=== PATIENT | male | born 2000 | race Native Hawaiian/Other Pacific Islander ===

== ENCOUNTER 2021-08-02 12:34 | Outpatient (REF) | payer OTHER, SELFPAY ==
[2021-08-02 16:10] LABS: COVID-19 Test Negative (Negative)
== END 2021-08-02 12:35 | disposition home or self-care (01) ==
LOC: HO.LAB 12:34
PROVIDERS: Visit Provider Internal Medicine
DX: Z20.822 Contact with and (suspected) exposure to COVID-19 (principal)
CPT/HCPCS: 36415; 87635; C9803

== ENCOUNTER 2021-08-09 09:26 | Emergency (ER) | payer OTHER, SELFPAY ==
[2021-08-09 10:59] VITALS: BP 164/66; PULSE 93; RESP 16; TEMP 37.4; O2SAT 98; BMI 41.6
[2021-08-09] MEDS: Diphth,Pertus(ACell),Tet Adult 0.5 ML SYRINGE IM (11:28)
--- NOTE | 2021-08-09 11:47 | ED.WOUNDLAC ---
HPI - Wound/Laceration General Chief Complaint: Wound/Laceration Stated Complaint: finger lac at work Time Seen by Provider: 08/09/21 11:19 History of Present Illness HPI narrative: Patient complains of laceration to left 4th finger while cutting boxes at work with a knife this morning Related Data Allergies Allergy/AdvReac Type Severity Reaction Status Date / Time No Known Allergies Allergy Unverified 04/28/20 16:54 Review of Systems Review of Systems: Positive left 4th finger laceration Negatives are no numbness no weakness no tingling no joint pain no neck pain no back pain no other injury Yes all other systems are reviewed and are negative [facility] Past Medical History Source: nursing notes reviewed Medical History (Updated 08/09/21 @ 11:48 by CITLALLI Ivy) Asthma Social History Social History Advance Directives: No Advance Directives Information Provided: Yes Physical Exam Vital Signs: Vital Signs: Last Vital Signs Temp 99.4 F 08/09/21 10:59 Pulse 93 08/09/21 10:59 Resp 16 08/09/21 10:59 BP 164/66 H 08/09/21 10:59 Pulse Ox 98 08/09/21 10:59 BMI result Body Mass Index 41.6 General appearance no distress Head is normocephalic atraumatic Neck is supple Respiratory no distress Extremities the left 4th finger volar surface had a 1 0.5 cm subcutaneous laceration All tendon function is normal there is full range of motion in the joints motor and sensation are intact Other extremities neuro Course Course Course Narrative: Left 4th finger laceration procedure note The 1.5 cm laceration is cleansed and irrigated with normal saline A digital block is applied to the finger with good anesthesia using 6 cc of 1% lidocaine 55.0 nylon sutures were used Wound was well approximated bleeding controlled and bandage was applied Discharge Plan Discharge Clinical Impression: Laceration Patient Disposition: Home, Self-Care Additional Instructions: Stitches need to be removed in 7 days at work connection Return any time for redness swelling any sign of infection You got a tetanus shot today Referrals: [facility] [Provider Group] - 2 days (Finger laceration with sutures) Stand Alone Forms: Work/School Release Interventions: ED Discharge Assessment Last Done: 08/09/21 12:40 Discharge Date/Time: 08/09/21 12:40
[2021-08-09] MEDS: Lidocaine HCl 2 % 20 ML VIAL 5 ML SUBCUT ×2 (12:39)
== END 2021-08-09 12:40 | disposition home or self-care (01) ==
PROVIDERS: Emergency Provider Emergency Medicine
DX: S61.215A Laceration without foreign body of left ring finger without damage to nail, initial encounter (principal); W27.8XXA Contact with other nonpowered hand tool, initial encounter; Y93.89 Activity, other specified; Y92.59 Other trade areas as the place of occurrence of the external cause; Y99.0 Civilian activity done for income or pay
CPT/HCPCS: 12001; 90471; 90715; 99283; 99284

== ENCOUNTER 2022-03-05 18:51 | Emergency (ER) | payer OTHER, SELFPAY ==
--- NOTE | ~2022-03-05 | XR_ITS ---
EXAMINATION: XR ANKLE, RIGHT CLINICAL INFORMATION: Pain with limited range of motion COMPARISON: None TECHNIQUE: AP, lateral, and mortise views of the right ankle. FINDINGS: There is a small ossification seen adjacent to the tip of the lateral malleolus. This could represent an avulsion. No additional evidence of fracture. No dislocation. The ankle mortise is congruent. No ankle joint effusion. Diffuse circumferential soft tissue swelling. XR/XR ankle RT min 3V IMPRESSION: Circumferential soft tissue swelling. Possible small avulsive injury at the tip of the lateral malleolus.
[2022-03-05 19:42] VITALS: BP 153/85; PULSE 104; RESP 18; TEMP 37.6; O2SAT 98; BMI 41.9
--- NOTE | 2022-03-05 20:46 | ED_ITS ---
HPI - Extremity Injury (Lower) General Chief Complaint: Extremity Injury, Lower Stated Complaint: foot INJ Time Seen by Provider: 03/05/22 20:46 Source: patient Mode of arrival: ambulatory Limitations: no limitations History of Present Illness HPI Narrative: 21-year-old male came in for evaluation of her right ankle pain. Patient was trying to get of home going truck missed a step landed on the ground twisting his right ankle. Patient was able to bear weight with pain. Patient's pain is localized to the right ankle. Related Data Allergies Allergy/AdvReac Type Severity Reaction Status Date / Time No Known Allergies Allergy Unverified 04/28/20 16:54 Review of Systems Review of Systems: All other systems are reviewed and are negative Constitutional: Reports as per HPI and Reports no additional constitutional complaints Eyes: Reports as per HPI and Reports no additional eye complaints Reports system reviewed and no additional complaints, except as documented Cardiovascular: Reports as per HPI and Reports no additional cardiovascular complaints Respiratory: Reports as per HPI and Reports no additional respiratory complaints Gastrointestinal: Reports as per HPI and Reports no additional gastrointestinal complaints Genitourinary: Reports no additional female genitourinary complaints Musculoskeletal: Reports no additional musculoskeletal complaints Skin/Breast: Reports system reviewed and no additional complaints, except as docu Psychiatric: Reports no additional psychiatric complaints Endocrine: Reports no additional endocrine complaints Hematologic/Lymphatic: Reports no additional hematologic/lymphatic complaints Allergic/Immunologic: Reports no additional allergic/immunologic complaints Reports system reviewed and no additional complaints, except as documented and Reports Abnormal speech present [facility] Past Medical History Medical History Asthma Social History Social History Advance Directives: No Advance Directives Information Provided: No Physical Exam Vital Signs: Vital Signs: Last Vital Signs Temp 99.6 F 03/05/22 19:42 Pulse 104 H 03/05/22 19:42 Resp 18 03/05/22 19:42 BP 153/85 H 03/05/22 19:42 Pulse Ox 98 03/05/22 19:42 O2 Del Method 03/05/22 19:42 BMI result Body Mass Index 41.9 Vital signs have been reviewed as appeared to be correct. Blood pressure normal. Heart rate normal. Respiration rate normal. Temperature normal. Oxygen saturation normal. Appearance: Alert. Oriented X3. No acute distress. Head: Normal external exam. Normocephalic. Atraumatic. No Bang signs noted. No raccoon eyes noted Eyes: PERRLA. EOMI. Conjunctiva and sclera normal. Eyelids normal. ENT: TM's Normal. Pharynx normal. Uvula midline. Moist mucous membranes. No trismus noted. No drooling noted. No muffled voice noted. Neck: Normal inspection. Neck supple. FROM. No adenopathy. Thyroid Normal. No meningeal signs. No neck mass noted. CVS: Normal heart rate and rhythm. Heart sound normal. No murmurs noted. Pulses normal throughout. Respiratory: No respiratory distress. Painless inspiration. Breath sounds normal. No wheezes/rales/rhonchi noted. Chest nontender. No accessory muscle usage noted or decreased air movement noted. Abdomen: Soft and nontender. Bowel sounds normal in all 4 quadrants. No distention noted. No organomegaly noted. No visible injury noted. Back: No CVA tenderness. Full range of motion noted. Skin: Skin warm and dry. Normal skin color. Normal skin turgor. No rashes/lesions/lacerations noted. Extremities: Right ankle exam: Mild tenderness over medial and lateral malleolus, mild swelling, able to ambulate and bear weight. Neuro: Oriented X 3. Cranial nerve exam: II-XII are grossly intact No motor deficit. No sensory deficit. Reflexes normal. Course Course Course Narrative: Right ankle sprain. With possible avulsion injury. Ice, NSAIDs, Luis F bandage. Follow-up with ortho. MDM - Extremity Injury (Lower) Imaging Data Right ankle x-ray: Attestation: I personally reviewed and interpreted this imaging study as follows: Radiologist's impression: Circumferential soft tissue swelling. Possible small avulsive injury at the tip of the lateral malleolus. Discharge Plan Discharge Clinical Impression: Right ankle sprain, Avulsion injury Patient Disposition: Home, Self-Care Instructions: Ankle Sprain (ED) Referrals: Silverio Maradiaga MD [Physician] - Stand Alone Forms: Work/School Release
== END 2022-03-05 21:17 | disposition home or self-care (01) ==
PROVIDERS: Emergency Provider Emergency Medicine
DX: S93.401A Sprain of unspecified ligament of right ankle, initial encounter (principal); X50.1XXA Overexertion from prolonged static or awkward postures, initial encounter; Y93.9 Activity, unspecified; Y92.9 Unspecified place or not applicable; Y99.9 Unspecified external cause status
CPT/HCPCS: 73610; 99282; 99283

== ENCOUNTER → 2023-01-14 09:16 | Outpatient (BNVA) | payer OTHER, SELFPAY | PROVIDERS: Visit Provider Internal Medicine | DX: S51.812A Laceration without foreign body of left forearm, initial encounter (principal); W26.0XXA Contact with knife, initial encounter | CPT/HCPCS: 12004; 99203 ==

== ENCOUNTER → 2023-01-17 14:29 | Outpatient (BNVA) | payer OTHER, SELFPAY | PROVIDERS: Visit Provider Internal Medicine | DX: S61.512A Laceration without foreign body of left wrist, initial encounter (principal); W26.0XXA Contact with knife, initial encounter | CPT/HCPCS: 99213 ==

== ENCOUNTER → 2023-01-22 08:45 | Outpatient (BNVA) | payer OTHER, SELFPAY | PROVIDERS: Visit Provider Internal Medicine | DX: S61.512A Laceration without foreign body of left wrist, initial encounter (principal); W26.0XXA Contact with knife, initial encounter | CPT/HCPCS: 99212; 99213 ==

== ENCOUNTER 2023-10-01 13:29 | Emergency (ER) | payer MEDICAID, SELFPAY ==
--- NOTE | ~2023-10-01 | CT_ITS ---
EXAMINATION: CT ABDOMEN AND PELVIS WITHOUT CONTRAST CLINICAL INFORMATION: The material COMPARISON: None available. TECHNIQUE: Multidetector volumetric imaging was performed from the superior aspect of the liver through the pubic symphysis. Sagittal and coronal reformatted images were obtained on the technologist's workstation. This CT examination was performed using dose optimization techniques as appropriate, variously including the following: *Automated exposure control *Adjustment of mA and/or kV according to patient size (this includes techniques or standardized protocols for targeted exams where dose is matched to indication/reason for exam; i.e. extremities or head) *Use of iterative reconstruction technique DLP: 847 mGy-cm FINDINGS: LUNG BASES: The visualized lung bases are unremarkable. The heart size is normal. LIVER, GALLBLADDER, AND BILIARY TREE: The liver is normal in size, shape, and attenuation. No focal hepatic lesion or biliary ductal dilatation is present. The gallbladder is unremarkable with no evidence of radiopaque gallstones, gallbladder wall thickening, or obvious pericholecystic inflammatory changes. PANCREAS: Unremarkable. SPLEEN: Unremarkable. ADRENAL GLANDS: Unremarkable. KIDNEYS AND URETERS: The kidneys are normal in size, shape, and attenuation. There are nonobstructive 3 mm upper pole, 6 mm mid and lower pole radiopaque calculi left kidney without caliectasis or hydronephrosis. There is a 2.2 cm cyst midpole left kidney. There is a 1 mm nonobstructive radiopaque calculi lower pole right kidney. No hydronephrosis seen on either side. BLADDER: The bladder is nondistended. GASTROINTESTINAL TRACT: There is scattered stool and gas seen throughout the colon without distention. The appendix and the small bowel loops are normal caliber. The stomach is nondistended and appears unremarkable. ABDOMINAL WALL: No significant hernia is appreciated. LYMPH NODES: No abnormal size retroperitoneal lymph nodes seen. VASCULAR: Unremarkable. PELVIC VISCERA: Unremarkable. OSSEOUS STRUCTURES: No aggressive lytic or sclerotic process seen. CT/CT abdomen pelvis wo IV con IMPRESSION: 1. Bilateral nonobstructive radiopaque renal calculi without caliectasis or hydronephrosis. There is a simple left renal cyst. No further workup is needed 2. Mild constipation. Fleischner guidelines were followed.
[2023-10-01 13:55] VITALS: BP 149/94; PULSE 72; RESP 19; TEMP 36.6; O2SAT 98; BMI 42.9
--- NOTE | 2023-10-01 13:57 | ED.MALEGU ---
HPI - Male Genitourinary General Chief complaint: Urogenital-Male Stated complaint: Blood in Urine History of Present Illness HPI Narrative: left without completion of treatment by ED providder Related Data Allergies Allergy/AdvReac Type Severity Reaction Status Date / Time No Known Allergies Allergy Verified 10/01/23 13:55 [facility] Past Medical History Medical History Asthma Social History Social History Advance Directives: No Advance Directives Information Provided: No Physical Exam Vital Signs: Vital Signs: Last Vital Signs Temp 98 F 10/01/23 13:55 Pulse 72 10/01/23 13:55 Resp 19 10/01/23 13:55 BP 149/94 H 10/01/23 13:55 Pulse Ox 98 10/01/23 13:55 O2 Del Method Room Air 10/01/23 13:55 BMI result Body Mass Index 42.9 Course Course Course Narrative: RME: 22 yold male presents to the ED for hematuria and slight dysuria. states no abdominal pain, nausea, vomitting, or flank pain. labs and Abominal CT scan ordered Medical Decision Making Lab Data 10/01/23 15:13 10/01/23 15:13 Labs: Lab Results 10/01/23 Range/Units 15:13 WBC 15.2 H (4.8-10.8) X10*3/uL RBC 5.50 (4.60-5.80) X10*6/uL Hgb 15.5 (14.0-18.0) g/dl Hct 47.7 (42.0-52.0) % MCV 86.7 (80.0-98.0) fL MCH 28.2 (27.0-33.0) pg MCHC 32.5 (31.0-36.0) g/dl RDW 12.8 (11.0-16.0) % Plt Count 289 (160-400) X10*3/uL MPV 11.3 (9.4-12.4) fL Immature Gran % (Auto) 0.5 H (0.0-0.4) % Neut % (Auto) 70.1 (45-73) % Lymph % (Auto) 22.1 (20-40) % Moody % (Auto) 5.7 (2-11) % Eos % (Auto) 1.1 (0-4) % Baso % (Auto) 0.5 (0-2) % Lymph # (Auto) 3.4 (1.2-4.9) X10*3/uL Moody # (Auto) 0.9 (0.1-1.2) X10*3/uL Eos # (Auto) 0.2 (0.0-0.4) X10*3/uL Baso # (Auto) 0.1 (0.0-0.2) X10*3/uL Abs Immat Gran (auto) 0.08 H (0.00-0.03) X10*3/uL Absolute Neuts (auto) 10.7 H (2.0-8.3) x10*3/uL Absolute Nucleated RBC 0.000 (0.0-0.012) X10*3/uL Nucleated RBC % (auto) 0.0 (0.0-0.2) /100WBC Sodium 140 (135-145) mmol/L Potassium 3.9 (3.3-5.1) mmol/L Chloride 105 (96-108) mmol/L Carbon Dioxide 25 (22-29) mmol/L Anion Gap 14 (12-20) BUN 13 (9-16) mg/dL Creatinine 0.75 (0.5-1.4) mg/dL Estim Creat Clear Calc 189.1 Estimated GFR > 60 Random Glucose 88 (60-115) mg/dL Calcium 9.5 (8.4-10.2) mg/dL Total Bilirubin 0.3 (0.0-1.0) mg/dL AST 24 (5-37) U/L ALT 41 H (0-40) U/L Alkaline Phosphatase 68 (39-117) U/L Total Protein 8.0 (6.5-8.0) g/dL Albumin 4.4 (3.5-5.0) g/dL Urine Color [place] A Urine Appearance Turbid Urine pH 5.5 (5.0-9.0) Ur Specific [place] 1.020 (1.005-1.025) Urine Protein 30 (1+) H (Neg-Trace) mg/dL Urine Glucose (UA) Negative (Negative) mg/dL Urine Ketones Negative (Negative) mg/dL Urine Blood Large (3+) H (Negative) Urine Nitrite Negative (Negative) Ur Leukocyte Esterase Small (1+) H (Negative) Urine RBC >20 H (0-2) /HPF Urine WBC 11-20 H (0-5) /HPF Ur Squamous Epith Cells 0-2 (0-2) /HPF Urine Bacteria None Seen (None Seen) Hyaline Casts 0-2 (0-2) /LPF Discharge Plan Discharge Clinical Impression: Dysuria Patient Disposition: Left W/O Completing Treatment Discharge Date/Time: 10/01/23 21:34
[2023-10-01 15:44] LABS: MANUAL DIFF FLAG NO
[2023-10-01 15:48] LABS: Basophils Absolute Auto 0.1 X10*3/uL (0.0-0.2); Basophils Percent Auto 0.5 % (0-2); Eosinophils Absolute Auto 0.2 X10*3/uL (0.0-0.4); Eosinophils Percent Auto 1.1 % (0-4); Hematocrit 47.7 % (42.0-52.0); Hemoglobin 15.5 g/dl (14.0-18.0); Imm Gran Abs Auto 0.08 X10*3/uL (0.00-0.03); Imm Gran Pct Auto 0.5 % (0.0-0.4); Lymphocytes Absolute Auto 3.4 X10*3/uL (1.2-4.9); Lymphocytes Percent Auto 22.1 % (20-40); Mean Corpuscular HGB Conc 32.5 g/dl (31.0-36.0); Mean Corpuscular Hemoglobin 28.2 pg (27.0-33.0); Mean Corpuscular Volume 86.7 fL (80.0-98.0); Mean Platelet Volume 11.3 fL (9.4-12.4); Monocytes Absolute Auto 0.9 X10*3/uL (0.1-1.2); Monocytes Percent Auto 5.7 % (2-11); Neutrophils Absolute Auto 10.7 x10*3/uL (2.0-8.3); Neutrophils Percent Auto 70.1 % (45-73); Platelet Count 289 X10*3/uL (160-400); Red Cell Distribution Width 12.8 % (11.0-16.0); White Blood Count 15.2 X10*3/uL (4.8-10.8)
[2023-10-01 15:52] LABS: Appearance Urine Turbid; Color Urine Orange; Glucose Urine UA Negative (Negative); Leukocyte Esterase Urine Small (1+) (Negative); Nitrite Urine Negative (Negative); PH 5.5 (5.0-9.0); UMIC TRIGGER UACC YES; Urine Blood Large (3+) (Negative); Urine Ketones Negative (Negative); Urine Protein 30 (1+) mg/dL (Neg-Trace)
[2023-10-01 15:54] LABS: Bacteria Urine None Seen (None Seen); Hyaline Casts Urine 0-2 /LPF (0-2); RBC Urine >20 /HPF (0-2); Squamous Epithelial Cell Urine 0-2 /HPF (0-2); UACC Culture Trigger YES
[2023-10-01 16:05] LABS: Alanine Aminotransferase 41 U/L (0-40); Albumin Level 4.4 g/dL (3.5-5.0); Alkaline Phosphatase 68 U/L (39-117); Anion Gap 14 (12-20); Aspartate Amino Transferase 24 U/L (5-37); Bilirubin Total 0.3 mg/dL (0.0-1.0); Blood Urea Nitrogen 13 mg/dL (9-16); Calcium 9.5 mg/dL (8.4-10.2); Carbon Dioxide 25 mmol/L (22-29); Chloride 105 mmol/L (96-108); Creatinine Clr Calc Pharmacy 189.1; Estimated Glomerular Filt Rate > 60; Glucose Random 88 mg/dL (60-115); Potassium 3.9 mmol/L (3.3-5.1); Sodium 140 mmol/L (135-145)
--- NOTE | 2023-10-01 21:29 | PC.NURSE ---
Called to triage for reassessment: no answer. x 3
== END 2023-10-01 21:34 | disposition left against medical advice (07) ==
PROVIDERS: Physician Assistant; Emergency Provider Emergency Medicine
DX: R30.0 Dysuria (principal); R31.9 Hematuria, unspecified; K59.00 Constipation, unspecified; Z79.899 Other long term (current) drug therapy
CPT/HCPCS: 36415; 74176; 80053; 81001; 85025; 87086; 99282; 99284